=== PATIENT | male | born 1965 | race Caucasian/White ===

== ENCOUNTER 2017-03-09 23:17 | Emergency (ER) | payer SELFPAY | END 2017-03-10 00:50 | disposition home or self-care (01) | LOC: D.ER 23:17 | DX: Z03.89 Encounter for observation for other suspected diseases and conditions ruled out (principal); F17.200 Nicotine dependence, unspecified, uncomplicated ==

== ENCOUNTER 2018-06-12 17:56 | Emergency (ER) | payer SELFPAY ==
[~2018-06-12] VITALS: Ht 162.6 cm; Wt 72.7 kg
[2018-06-12 17:58] VITALS: Ht 162.6 cm; Wt 72.7 kg
[2018-06-12 19:08] LABS: BASOPHILS 0.3 % (0-2); EOSINOPHILS 3.7 % (0-7); HEMATOCRIT 36.8 % (42.0-54.0); HEMOGLOBIN 12.3 g/dL (13.5-17.5); IMMATURE GRANULOCYTES 0.5 % (0-5); LYMPHOCYTES 9.1 % (15-50); MCH 30.7 pg (26.0-34.0); MCHC 33.4 g/dL (31.0-37.0); MCV 91.8 fL (80.0-100.0); MEAN PLATELET VOLUME 8.8 fL (7.4-10.4); MONOCYTES 6.1 % (2-11); NEUTROPHILS 80.3 % (40-80); PLATELET COUNT 362 10x3/uL (130-400); RBC 4.01 10x6/uL (4.20-6.10); RDW 12.8 % (11.5-14.5); WBC 10.5 10x3/uL (4.8-10.8)
[2018-06-12 20:24] LABS: ALBUMIN 2.5 g/dL (3.4-5.0); ALKALINE PHOSPHATASE 93 U/L (46-116); ALT (SGPT) 20 U/L (10-68); CALC OSMOLALITY 274 mosm/kg (275-300); CALCIUM 8.8 mg/dL (8.5-10.1); CARBON DIOXIDE 27.1 mmol/L (21.0-32.0); CHLORIDE - SERUM 103 mmol/L (98-107); CKMB 0.5 U/L (0.0-3.6); CREATINE KINASE 10 UL (21-232); GLUCOSE 92 mg/dL (74-106); POTASSIUM - SERUM 3.9 mmol/L (3.5-5.1); PROTEIN - SERUM 7.1 g/dL (6.4-8.2); SODIUM 138 mmol/L (136-145); UREA NITROGEN 10 mg/dL (7-18)
[2018-06-12 20:28] LABS: CREATININE - SERUM 0.7 mg/dL (0.6-1.3); eGFR NON AFRICAN AMERICAN > 90 mL/min (90-120)
[2018-06-12 20:29] LABS: TROPONIN-I < 0.017 ng/mL (0.000-0.060)
[2018-06-13 00:59] LABS: CKMB 0.6 U/L (0.0-3.6); CREATINE KINASE 10 UL (21-232); PRO BNP 797 pg/mL (0-125)
[2018-06-13 01:02] LABS: TROPONIN-I < 0.017 ng/mL (0.000-0.060)
[2018-06-13 01:33] VITALS: BP 131/87
== END 2018-06-13 01:34 | disposition home or self-care (01) ==
LOC: D.ER 17:56
PROVIDERS: Emergency Medicine; Family Medicine
DX: R60.9 Edema, unspecified (principal); R07.9 Chest pain, unspecified; F19.10 Other psychoactive substance abuse, uncomplicated; F17.200 Nicotine dependence, unspecified, uncomplicated

== ENCOUNTER 2018-08-02 21:45 | Inpatient (IN) | payer MEDICAID ==
[~2018-08-02] VITALS: Ht 162.6 cm; Wt 60.5 kg
--- NOTE | ~2018-08-02 | MORECARE ---
CASE MANAGEMENT DISCHARGE SUMMARY PATIENT: NESTOR HUMPHREY UNIT: [id number] ADM DATE: 08/03/18 AGE: 52 : 63 SEX: M ROOM/BED: D.2104 AUTHOR: HIPOLITO TORO PHYSICIAN: REFERRING PHYSICIAN: ASHLI MERCHANT MD DATE OF SERVICE: 08/07/18 Discharge Plan Patient Name: NESTOR HUMPHREY [facility] [facility] 1965 Planned Disposition: Home Anticipated Discharge Date: 08/07/18 Discharge Date: Expected LOS: 4 Initial Reviewer: [email or web address] Initial Review Date: 08/03/2018 Generated: 08/07/18 6:23 pm Comments DCP- Discharge Planning Updated by [email or web address]: Del Hodges on 08/07/18 4:[address] Patient Name: NESTOR HUMPHREY Encounter No: [id number] : 1965 Primary Insurance: MEDICAID [place] PENDING Anticipated DC Date: 08-07-2018 Planned Disposition: Home DCP follow-up note: HAYES SPOKE TO DR. MERCHANT WHO INFORMED CM THAT PT WILL NEED LASIX, COREG AND ALDACTONE FOR DISCHARGE. DR. MERCHANT WILL DISCHARGE PT TODAY PT IS STABLE, IF MEDICATIONS CAN BE OBTAINED. HAYES MET WITH PT WHO DENIED HAVING FUNDS OR ASSISTANCE TO HELP, HE STILL BELIEVES THAT [facility] WILL ASSIST WITH MEDICATIONS. CM CALLED [facility], SPOKE TO MADELAINE WHO PROVIDED PRICING OF THIRTY DAY SUPPLY OF: LASIX 40MG BID $$17.40 / COREG 3.125MG BID $16.80 / ALDCTONE 25MG 1X DAILY $18.30. CM RECEIVED ADMINISTRATIVE APPROVAL FOR CASE MANAGEMENT TO PURCHASE PT'S MEDICATIONS LISTED ABOVE BY GEOSCIENCE LABORATORY TECHNICIAN ARIA NARANJO. CM NOTIFIED BEDSIDE NURSE AND ASKED FOR NURSE TO CALL [facility] FOR MEDICATION CALL IN ORDER PER DR. MERCHANT. HAYES SPOKE TO YANA OF [facility] [employer] WHO INFORMED CM THAT SHE EXPECTS MEDICAID DETERMINATION IN NEXT TWO DAYS. CM SPOKE TO PT IN ROOM, PROVIDED DEPARTMENT OF HUMAN SERVICES CONTACT INFORMATION, DIRECTED PT TO FOLLOW UP WITH MEDICAID; IF MEDICAID IS ACTIVE, DIRECTED PT TO CONTACT [facility] AND REQUEST PRIMARY CARE, INFORMATION PROVIDED TO PT. IF DECLINED MEDICAID, PT DIRECTED TO REQUEST HARD COPY OF DENIAL LETTER FROM [facility] FOR MEDICAID AND DIRECTED PT TO FILL OUT [facility] APPLICATION AND TURN IN TO [facility]. CM PROVIDED APPLICATION PACKET AND CONTACT INFORMATION TO [facility]. CM PROVIDED TWO BUS PASSES FOR PT'S USE. CM INSTRUCTED PT TO ANIMAL CARE TAKER HIS PRESCRIPTIONS AT [facility], IF AFTER 5:30 TONIGHT, CM ADVISED PT TO PICK THEM UP AT 0900 IN THE MORNING. PT PLANS TO STAY IN [facility] IF DISCHARGED TO LATE TO GET HIS MEDICATIONS AND ANIMAL CARE TAKER MEDICATIONS IN THE MORNING PRIOR TO GOING TO THE [facility]. CM NOTIFIED BEDSIDE NURSE. DEL HODGES, CASE MANAGEMENT DCP- Discharge Planning Updated by [email or web address]: Clementina Houser on 08/03/18 1:[address] CM met with patient to assess/complete initial dc planning assessment. CM educated the patient on the CM role and he gave consent to complete assessment. Patient reports he lives in a building with no utilities. he reports he has no family in the [facility]. He reports he is independent in his care, showers when he is living at [facility]. He is currently wearing 02, may require WALKING O2 SAT upon discharge. He plans to return to the building (no public facilities) or [facility], at discharge. Patient will require MEDICATION ASSIST upon discharge.. Emergency Contact: Varsha Humphrey (mother) [phone] and patient gives consent for contact if needed. Pharmacy: [facility]. PCP: None. CM will continue to follow and will assist as needed with dc plans/needs. DCPIA - Discharge Planning Initial Assessment Updated by [email or web address]: Clementina Corrina on 08/03/18 2:57 pm * Is the patient Alert and Oriented? Yes * How many steps to enter\exit or inside your home? * PCP None * Pharmacy [facility] * Preadmission Environment Homeless * Other Environment Homeless * Facility Name [facility] A building without public utilities * ADLs Partial Dependent * Equipment None * List name and contact numbers for known caregivers / representatives who currently or will assist patient after discharge: Varsha Humphrey (mother) [phone] * Verbal permission to speak to the caregivers and representatives has been obtained from the patient. Yes * Community resources currently utilized None * Please name any agencies selected above. Plans to return to [facility] * Can the patient safely return to the preadmission environment? Yes * Has this patient been hospitalized within the prior 30 days at any hospital? No Last DP export: 08/07/18 4:12 p Patient Name: NESTOR HUMPHREY Page 13708 at 1723 All edits/amendments must be made on the electronic document DICTATION DATE: 08/07/181721 COVERING AND LINING SUPERVISOR: DIONTE 08/07/181721 RPT#: [id number] DC DATE: STATUS: ADM IN [facility] [address] [place] [address] END OF REPORT
--- NOTE | ~2018-08-02 | MORECARE ---
CASE MANAGEMENT DISCHARGE SUMMARY PATIENT: NESTOR HUMPHREY UNIT: [id number] ADM DATE: 08/03/18 AGE: 52 : 63 SEX: M ROOM/BED: D.2104 AUTHOR: CORTEZDOC PHYSICIAN: REFERRING PHYSICIAN: ASHLI MERCHANT MD DATE OF SERVICE: 08/03/18 Discharge Plan Patient Name: NESTOR HUMPHREY Facility: [facility]:[place] : 1965 Planned Disposition: Anticipated Discharge Date: Discharge Date: Expected LOS: Initial Reviewer: [email or web address] Initial Review Date: 08/03/2018 Generated: 08/03/18 4:10 pm Comments DCP- Discharge Planning Updated by [id number]: Clementina Houser on 08/03/18 1:[address] CM met with patient to assess/complete initial dc planning assessment. CM educated the patient on the CM role and he gave consent to complete assessment. Patient reports he lives in a building with no utilities. he reports he has no family in the [facility]. He reports he is independent in his care, showers when he is living at [facility]. He is currently wearing 02, may require WALKING O2 SAT upon discharge. He plans to return to the building (no public facilities) or [facility], at discharge. Patient will require MEDICATION ASSIST upon discharge.. Emergency Contact: Varsha Humphrey (mother) [phone] and patient gives consent for contact if needed. Pharmacy: [facility] /[place]. PCP: None. CM will continue to follow and will assist as needed with dc plans/needs. DCPIA - Discharge Planning Initial Assessment Updated by [email or web address]: Clementina Houser on 08/03/18 2:57 pm * Is the patient Alert and Oriented? Yes * How many steps to enter\exit or inside your home? * PCP None * Pharmacy [facility] * Preadmission Environment Homeless * Other Environment Homeless * Facility Name [facility] without public utilities * ADLs Partial Dependent * Equipment None * List name and contact numbers for known caregivers / representatives who currently or will assist patient after discharge: Varsha Humphrey (mother) [phone] * Verbal permission to speak to the caregivers and representatives has been obtained from the patient. Yes * Community resources currently utilized None * Please name any agencies selected above. Plans to return to [facility] * Can the patient safely return to the preadmission environment? Yes * Has this patient been hospitalized within the prior 30 days at any hospital? No Last DP export: 08/03/18 1:28 Patient Name: NESTOR HUMPHREY Page 13667 at 1510 All edits/amendments must be made on the electronic document DICTATION DATE: 08/03/181508 RACE STEWARD: DIONTE 08/03/18 150 RPT#: [id number] DC DATE: STATUS: ADM IN [facility] [address] [place] [address] END OF REPORT
--- NOTE | ~2018-08-02 | CN ---
PATIENT NAME:NESTOR TRIPLETT MEDICAL RECORD: [id number] : 63 LOCATION:[place].T02- ADMIT DATE: 08/03/18 ACCOUNT: [id number] CONSULTING PHYSICIAN: GENA PHILLIPS MD REFERRING PHYSICIAN: ASHLI MERCHANT MD DATE OF CONSULTATION: 08/03/2018 DIAGNOSES: 1. Congestive heart failure, chronic systolic dysfunction. 2. Dilated cardiomyopathy, nonischemic. 3. Chronic obstructive pulmonary disease. 4. Smoking history. 5. Shortness of breath, dyspnea on exertion. 6. Peripheral edema. 7. Hypokalemia. 8. Chronic obstructive pulmonary disease. 9. Hypertension. 10. Hyperlipidemia. HISTORY OF PRESENT ILLNESS: This is a gentleman known to [facility] with a nonischemic cardiomyopathy, cardiac catheterization revealed ejection fraction in the 15% range, but no coronary artery disease. He now presents with shortness of breath, fluid overload and edema. He is tachycardic in the 100-110 range, systolic blood pressure is in the 120-130 range. He is on IV diuretics. PHYSICAL EXAMINATION: GENERAL APPEARANCE: Well-nourished, well-developed, appears stated age. Level of distress, comfortable. PSYCHIATRIC: Mental status, alert, normal affect. Orientation, oriented to time, place and person. EYES: Lids and conjunctiva, noninjected. No discharge, no pallor. ENT: Lips, teeth, gums, normal dentition. Oropharynx, no cyanosis, no pallor. NECK: Carotid arteries, bilateral normal upstroke, no bruits, no thrills. JUGULAR VEINS: No jugular venous pressure or distention. CERVICAL LYMPH NODES: Nontender, nonenlarged. THYROID: Not enlarged. Nontender. No nodules. LUNGS: Respiratory effort, unlabored. CHEST: Normal curvature. No thoracic deformity. No chest wall tenderness. Percussion, resonant. Auscultation, clear. No wheezes, no rales, no rhonchi. CARDIOVASCULAR: Precordial exam, nondisplaced. No heaves or pericardial thrills. Rate and rhythm, regular. Heart sounds, normal S1, normal S2. No S3, no gallop, no rub. Systolic murmur, not heard. Diastolic murmur, not heard. EXTREMITIES: No cyanosis, no edema. Peripheral pulses, full and equal in all extremities, except as noted. No bruits appreciated. ABDOMEN: Soft, nondistended. Normal aorta. No bruit. Nontender. No masses. Liver, nontender, no hepatomegaly. Spleen, nontender, no splenomegaly. MUSCULOSKELETAL: No joint tenderness. No joint swelling. No erythema. NEUROLOGICAL: Normal gait, normal strength, normal tone. SKIN: Warm and dry. OVERALL IMPRESSION: Nonischemic cardiomyopathy with fluid overload. At this time, we would treat only with diuretics. We would not add dobutamine secondary to worsening of the tachycardia. In fact, we will increase the carvedilol to 6.25 mg b.i.d. as he has enough blood pressure for this. No real cardiac workup is necessary as this has already been done. CONSULT REPORT [id number] NESTOR TRIPLETT TRANSINT:[id number] Voice Confirmation ID: [id number] DOCUMENT ID: [id number] GENA PHILLIPS MD CC: [id number] DICTATION DATE: 08/03/18 0953 SENIOR MEDICAL TRANSCRIPTIONIST: 08/03/18 1016 ADM IN [facility] [address] [place] [id number]
--- NOTE | ~2018-08-02 | MORECARE ---
CASE MANAGEMENT DISCHARGE SUMMARY PATIENT: NESTOR HUMPHREY UNIT: [id number] ADM DATE: 08/03/18 AGE: 52 : 63 SEX: M ROOM/BED: D.2104 AUTHOR: HIPOLITO TORO PHYSICIAN: REFERRING PHYSICIAN: ASHLI MERCHANT MD DATE OF SERVICE: 08/08/18 Discharge Plan Patient Name: NESTOR HUMPHREY [facility] [facility] 1965 Planned Disposition: Home Anticipated Discharge Date: 08/07/18 Discharge Date: 08/07/2018 Expected LOS: 4 Initial Reviewer: [email or web address] Initial Review Date: 08/03/2018 Generated: 08/08/18 9:34 am Comments DCP- Discharge Planning Updated by [email or web address]: Del Hodges on 08/07/18 4:[address] Patient Name: NESTOR HUMPHREY Encounter No: [id number] : 1965 Primary Insurance: MEDICAID [place] PENDING Anticipated DC Date: 08-07-2018 Planned Disposition: Home DCP follow-up note: HAYES SPOKE TO DR. MERCHANT WHO INFORMED CM THAT PT WILL NEED LASIX, COREG AND ALDACTONE FOR DISCHARGE. DR. MERCHANT WILL DISCHARGE PT TODAY PT IS STABLE, IF MEDICATIONS CAN BE OBTAINED. HAYES MET WITH PT WHO DENIED HAVING FUNDS OR ASSISTANCE TO HELP, HE STILL BELIEVES THAT [facility] WILL ASSIST WITH MEDICATIONS. CM CALLED [facility], SPOKE TO MADELAINE WHO PROVIDED PRICING OF THIRTY DAY SUPPLY OF: LASIX 40MG BID $$17.40 / COREG 3.125MG BID $16.80 / ALDCTONE 25MG 1X DAILY $18.30. CM RECEIVED ADMINISTRATIVE APPROVAL FOR CASE MANAGEMENT TO PURCHASE PT'S MEDICATIONS LISTED ABOVE BY BROOD STATION MANAGER ARIA NARANJO. CM NOTIFIED BEDSIDE NURSE AND ASKED FOR NURSE TO CALL [facility] FOR MEDICATION CALL IN ORDER PER DR. MERCHANT. HAYES SPOKE TO YANA OF [facility] [employer] WHO INFORMED CM THAT SHE EXPECTS MEDICAID DETERMINATION IN NEXT TWO DAYS. CM SPOKE TO PT IN ROOM, PROVIDED DEPARTMENT OF HUMAN SERVICES CONTACT INFORMATION, DIRECTED PT TO FOLLOW UP WITH MEDICAID; IF MEDICAID IS ACTIVE, DIRECTED PT TO CONTACT [facility] AND REQUEST PRIMARY CARE, INFORMATION PROVIDED TO PT. IF DECLINED MEDICAID, PT DIRECTED TO REQUEST HARD COPY OF DENIAL LETTER FROM [facility] FOR MEDICAID AND DIRECTED PT TO FILL OUT [facility] APPLICATION AND TURN IN TO [facility]. CM PROVIDED APPLICATION PACKET AND CONTACT INFORMATION TO [facility]. CM PROVIDED TWO BUS PASSES FOR PT'S USE. CM INSTRUCTED PT TO QUALITY CONTROL INSPECTOR HIS PRESCRIPTIONS AT [facility], IF AFTER 5:30 TONIGHT, CM ADVISED PT TO PICK THEM UP AT 0900 IN THE MORNING. PT PLANS TO STAY IN [facility] IF DISCHARGED TO LATE TO GET HIS MEDICATIONS AND QUALITY CONTROL INSPECTOR MEDICATIONS IN THE MORNING PRIOR TO GOING TO THE [facility]. CM NOTIFIED BEDSIDE NURSE. DEL HODGES, CASE MANAGEMENT DCP- Discharge Planning Updated by [email or web address]: Clementina Houser on 08/03/18 1:[address] CM met with patient to assess/complete initial dc planning assessment. CM educated the patient on the CM role and he gave consent to complete assessment. Patient reports he lives in a building with no utilities. he reports he has no family in the [facility]. He reports he is independent in his care, showers when he is living at [facility]. He is currently wearing 02, may require WALKING O2 SAT upon discharge. He plans to return to the building (no public facilities) or [facility], at discharge. Patient will require MEDICATION ASSIST upon discharge.. Emergency Contact: Varsha Humphrey (mother) [phone] and patient gives consent for contact if needed. Pharmacy: [facility]. PCP: None. CM will continue to follow and will assist as needed with dc plans/needs. DCPIA - Discharge Planning Initial Assessment Updated by [email or web address]: Clementina Houser on 08/03/18 2:57 pm * Is the patient Alert and Oriented? Yes * How many steps to enter\exit or inside your home? * PCP None * Pharmacy [facility] * Preadmission Environment Homeless * Other Environment Homeless * Facility Name [facility] A building without public utilities * ADLs Partial Dependent * Equipment None * List name and contact numbers for known caregivers / representatives who currently or will assist patient after discharge: Varsha Humphrey (mother) [phone] * Verbal permission to speak to the caregivers and representatives has been obtained from the patient. Yes * Community resources currently utilized None * Please name any agencies selected above. Plans to return to [facility] * Can the patient safely return to the preadmission environment? Yes * Has this patient been hospitalized within the prior 30 days at any hospital? No Last DP export: 08/07/18 5:08 p Patient Name: NESTOR HUMPHREY Page 77840 at 0835 All edits/amendments must be made on the electronic document DICTATION DATE: 08/08/18833 CHEMICAL DEPENDENCY NURSE: DIONTE 08/08/18833 RPT#: [id number] DC DATE:08/07/18 STATUS: DIS IN [facility] [address] [place] [address] END OF REPORT
--- NOTE | ~2018-08-02 | MORECARE ---
CASE MANAGEMENT DISCHARGE SUMMARY PATIENT: NESTOR TRIPLETT UNIT: [id number] ADM DATE: 08/03/18 AGE: 52 : 63 SEX: M ROOM/BED: D.2104 AUTHOR: HIPOLITO TORO PHYSICIAN: REFERRING PHYSICIAN: ASHLI MERCHANT MD DATE OF SERVICE: 08/03/18 Discharge Plan Patient Name: NESTOR TRIPLETT [facility] [facility] 1965 Planned Disposition: Anticipated Discharge Date: Discharge Date: Expected LOS: Initial Reviewer: [email or web address] Initial Review Date: 08/03/2018 Generated: 08/03/18 3:11 pm Patient Name: NESTOR TRIPLETT Page 96055 at 1411 All edits/amendments must be made on the electronic document DICTATION DATE: 08/03/18 1411 VARNISHING UNIT OPERATOR: DIONTE 08/03/18 1411 RPT#: [id number] DC DATE: STATUS: ADM IN [facility] [address] [place] [address] END OF REPORT
--- NOTE | ~2018-08-02 | MORECARE ---
CASE MANAGEMENT DISCHARGE SUMMARY PATIENT: NESTOR HUMPHREY UNIT: [id number] ADM DATE: 08/03/18 AGE: 52 : 63 SEX: M ROOM/BED: D.2104 AUTHOR: CORTEZDOC PHYSICIAN: REFERRING PHYSICIAN: ASHLI MERCHANT MD DATE OF SERVICE: 08/07/18 Discharge Plan Patient Name: NESTOR HUMPHREY Facility: [facility]:[place] : 1965 Planned Disposition: Home Anticipated Discharge Date: 08/07/18 Discharge Date: Expected LOS: 4 Initial Reviewer: [email or web address] Initial Review Date: 08/03/2018 Generated: 08/07/18 6:12 pm Comments DCP- Discharge Planning Updated by [email or web address]: Clementina Huoser on 08/03/18 1:[address] CM met with patient to assess/complete initial dc planning assessment. CM educated the patient on the CM role and he gave consent to complete assessment. Patient reports he lives in a building with no utilities. he reports he has no family in the [facility]. He reports he is independent in his care, showers when he is living at [facility]. He is currently wearing 02, may require WALKING O2 SAT upon discharge. He plans to return to the building (no public facilities) or [facility], at discharge. Patient will require MEDICATION ASSIST upon discharge.. Emergency Contact: Varsha Humphrey (mother) [phone] and patient gives consent for contact if needed. Pharmacy: [facility]. PCP: None. CM will continue to follow and will assist as needed with dc plans/needs. DCPIA - Discharge Planning Initial Assessment Updated by [email or web address]: Clementina Houser on 08/03/18 2:57 pm * Is the patient Alert and Oriented? Yes * How many steps to enter\exit or inside your home? * PCP None * Pharmacy [facility] /[place] * Preadmission Environment Homeless * Other Environment Homeless * Facility Name [facility] without public utilities * ADLs Partial Dependent * Equipment None * List name and contact numbers for known caregivers / representatives who currently or will assist patient after discharge: Varsha Humphrey (mother) [phone] * Verbal permission to speak to the caregivers and representatives has been obtained from the patient. Yes * Community resources currently utilized None * Please name any agencies selected above. Plans to return to [facility] * Can the patient safely return to the preadmission environment? Yes * Has this patient been hospitalized within the prior 30 days at any hospital? No Last DP export: 08/06/18 8:19 a Patient Name: NESTOR HUMPHREY Page 38062 at 1712 All edits/amendments must be made on the electronic document DICTATION DATE: 08/07/181711 MOTOR TRANSPORT INSPECTOR: DIONTE 08/07/181711 RPT#: [id number] DC DATE: STATUS: ADM IN [facility] [address] [place] [address] END OF REPORT
--- NOTE | ~2018-08-02 | MORECARE ---
CASE MANAGEMENT DISCHARGE SUMMARY PATIENT: NESTOR HUMPHREY UNIT: [id number] ADM DATE: 08/03/18 AGE: 52 : 63 SEX: M ROOM/BED: D.2104 AUTHOR: CORTEZDOC PHYSICIAN: REFERRING PHYSICIAN: ASHLI MERCHANT MD DATE OF SERVICE: 08/06/18 Discharge Plan Patient Name: NESTOR HUMPHREY Facility: [facility]:[place] : 1965 Planned Disposition: Anticipated Discharge Date: Discharge Date: Expected LOS: Initial Reviewer: [email or web address] Initial Review Date: 08/03/2018 Generated: 08/06/18 10:19 am Comments DCP- Discharge Planning Updated by [email or web address]: Clementina Houser on 08/03/18 1:[address] CM met with patient to assess/complete initial dc planning assessment. CM educated the patient on the CM role and he gave consent to complete assessment. Patient reports he lives in a building with no utilities. he reports he has no family in the count includes the [facility]. He reports he is independent in his care, showers when he is living at [facility]. He is currently wearing 02, may require WALKING O2 SAT upon discharge. He plans to return to the building (no public facilities) or [facility], at discharge. Patient will require MEDICATION ASSIST upon discharge.. Emergency Contact: Varsha Humphrey (mother) [phone] and patient gives consent for contact if needed. Pharmacy: [facility]. PCP: None. CM will continue to follow and will assist as needed with dc plans/needs. DCPIA - Discharge Planning Initial Assessment Updated by [email or web address]: Clementina Houser on 08/03/18 2:57 pm * Is the patient Alert and Oriented? Yes * How many steps to enter\exit or inside your home? * PCP None * Pharmacy [facility] * Preadmission Environment Homeless * Other Environment Homeless * Facility Name [facility] without public utilities * ADLs Partial Dependent * Equipment None * List name and contact numbers for known caregivers / representatives who currently or will assist patient after discharge: Varsha Humphrey (mother) [phone] * Verbal permission to speak to the caregivers and representatives has been obtained from the patient. Yes * Community resources currently utilized None * Please name any agencies selected above. Plans to return to [facility] * Can the patient safely return to the preadmission environment? Yes * Has this patient been hospitalized within the prior 30 days at any hospital? No Last DP export: 08/03/18 2:10 Patient Name: NESTOR HUMPHREY Page 32054 at 0919 All edits/amendments must be made on the electronic document DICTATION DATE: 08/06/18917 THIOKOL OPERATOR: DIONTE 08/06/18917 RPT#: [id number] DC DATE: STATUS: ADM IN [facility] [address] [place] [address] END OF REPORT
--- NOTE | ~2018-08-02 | MORECARE ---
CASE MANAGEMENT DISCHARGE SUMMARY PATIENT: NESTOR HUMPHREY UNIT: [id number] ADM DATE: 08/03/18 AGE: 52 : 63 SEX: M ROOM/BED: D.2104 AUTHOR: HIPOLITO TORO PHYSICIAN: REFERRING PHYSICIAN: ASHLI MERCHANT MD DATE OF SERVICE: 08/07/18 Discharge Plan Patient Name: NESTOR HUMPHREY [facility] [facility] 1965 Planned Disposition: Home Anticipated Discharge Date: 08/07/18 Discharge Date: Expected LOS: 4 Initial Reviewer: [email or web address] Initial Review Date: 08/03/2018 Generated: 08/07/18 7:08 pm Comments DCP- Discharge Planning Updated by [email or web address]: Del Hodges on 08/07/18 4:[address] Patient Name: NESTOR HUMPHREY Encounter No: [id number] : 1965 Primary Insurance: [place]ICAID [place]END[place] Anticipated DC Date: 08-07-2018 Planned Disposition: Home DCP follow-up note: HAYES SPOKE TO DR. MERCHANT WHO INFORMED CM THAT PT WILL NEED LASIX, COREG AND ALDACTONE FOR DISCHARGE. DR. MERCHANT WILL DISCHARGE PT TODAY PT IS STABLE, IF MEDICATIONS CAN BE OBTAINED. HAYES MET WITH PT WHO DENIED HAVING FUNDS OR ASSISTANCE TO HELP, HE STILL BELIEVES THAT HEALTH SYSTEM WILL ASSIST WITH MEDICATIONS. CM CALLED [facility], SPOKE TO MADELAINE WHO PROVIDED PRICING OF THIRTY DAY SUPPLY OF: LASIX 40MG BID $$17.40 / COREG 3.125MG BID $16.80 / ALDCTONE 25MG 1X DAILY $18.30. CM RECEIVED ADMINISTRATIVE APPROVAL FOR CASE MANAGEMENT TO PURCHASE PT'S MEDICATIONS LISTED ABOVE BY SWITCHBOARD INSTALLER ARIA NARANJO. CM NOTIFIED BEDSIDE NURSE AND ASKED FOR NURSE TO CALL [facility] FOR MEDICATION CALL IN ORDER PER DR. MERCHANT. HAYES SPOKE TO YANA OF [facility] [employer] WHO INFORMED CM THAT SHE EXPECTS MEDICAID DETERMINATION IN NEXT TWO DAYS. CM SPOKE TO PT IN ROOM, PROVIDED DEPARTMENT OF HUMAN SERVICES CONTACT INFORMATION, DIRECTED PT TO FOLLOW UP WITH MEDICAID; IF MEDICAID IS ACTIVE, DIRECTED PT TO CONTACT [facility] AND REQUEST PRIMARY CARE, INFORMATION PROVIDED TO PT. IF DECLINED MEDICAID, PT DIRECTED TO REQUEST HARD COPY OF DENIAL LETTER FROM [facility] FOR MEDICAID AND DIRECTED PT TO FILL OUT [facility] APPLICATION AND TURN IN TO [facility]. CM PROVIDED APPLICATION PACKET AND CONTACT INFORMATION TO [facility]. CM PROVIDED TWO BUS PASSES FOR PT'S USE. CM INSTRUCTED PT TO RASCHEL KNITTING MACHINE OPERATOR HIS PRESCRIPTIONS AT [facility], IF AFTER 5:30 TONIGHT, CM ADVISED PT TO PICK THEM UP AT 0900 IN THE MORNING. PT PLANS TO STAY IN [facility] IF DISCHARGED TO LATE TO GET HIS MEDICATIONS AND RASCHEL KNITTING MACHINE OPERATOR MEDICATIONS IN THE MORNING PRIOR TO GOING TO THE [facility]. CM NOTIFIED BEDSIDE NURSE. DEL HODGES, CASE MANAGEMENT DCP- Discharge Planning Updated by [id number]: Clementina Houser on 08/03/18 1:[address] CM met with patient to assess/complete initial dc planning assessment. CM educated the patient on the CM role and he gave consent to complete assessment. Patient reports he lives in a building with no utilities. he reports he has no family in the [facility]. He reports he is independent in his care, showers when he is living at [facility]. He is currently wearing 02, may require WALKING O2 SAT upon discharge. He plans to return to the building (no public facilities) or [facility], at discharge. Patient will require MEDICATION ASSIST upon discharge.. Emergency Contact: Varsha Humphrey (mother) [phone] and patient gives consent for contact if needed. Pharmacy: [facility]. PCP: None. CM will continue to follow and will assist as needed with dc plans/needs. DCPIA - Discharge Planning Initial Assessment Updated by [email or web address]: Clementina Corrina on 08/03/18 2:57 pm * Is the patient Alert and Oriented? Yes * How many steps to enter\exit or inside your home? * PCP None * Pharmacy [facility] * Preadmission Environment Homeless * Other Environment Homeless * Facility Name [facility] A building without public utilities * ADLs Partial Dependent * Equipment None * List name and contact numbers for known caregivers / representatives who currently or will assist patient after discharge: Varsha Humphrey (mother) [phone] * Verbal permission to speak to the caregivers and representatives has been obtained from the patient. Yes * Community resources currently utilized None * Please name any agencies selected above. Plans to return to [facility] * Can the patient safely return to the preadmission environment? Yes * Has this patient been hospitalized within the prior 30 days at any hospital? No Last DP export: 08/07/18 4:23 p Patient Name: NESTOR HUMPHREY Page [phone] at 1808 All edits/amendments must be made on the electronic document DICTATION DATE: 08/07/181807 RATE SUPERVISOR: DIONTE 08/07/181807 RPT#: [id number] DC DATE: STATUS: ADM IN [facility] [address] [place] [address] END OF REPORT
--- NOTE | ~2018-08-02 | MORECARE ---
CASE MANAGEMENT DISCHARGE SUMMARY PATIENT: NESTOR HUMPHREY UNIT: [id number] ADM DATE: 08/03/18 AGE: 52 : 63 SEX: M ROOM/BED: D.2104 AUTHOR: HIPOLITO TORO PHYSICIAN: REFERRING PHYSICIAN: ASHLI MERCHANT MD DATE OF SERVICE: 08/03/18 Discharge Plan Patient Name: NESTOR HUMPHREY [facility] [facility] 1965 Planned Disposition: Anticipated Discharge Date: Discharge Date: Expected LOS: Initial Reviewer: [email or web address] Initial Review Date: 08/03/2018 Generated: 08/03/18 3:28 pm Comments DCP- Discharge Planning Updated by [email or web address]: Clementina Houser on 08/03/18 1:[address] CM met with patient to assess/complete initial dc planning assessment. CM educated the patient on the CM role and he gave consent to complete assessment. Patient reports he lives in a building with no utilities. he reports he has no family in the state. He reports he is independent in his care, showers when he is living at [facility]. He is currently wearing 02, may require WALKING O2 SAT upon discharge. He plans to return to the building (no public facilities) or [facility], at discharge. Patient will require MEDICATION ASSIST upon discharge.. Emergency Contact: Varsha Humphrey (mother) [phone] and patient gives consent for contact if needed. Pharmacy: [facility]. PCP: None. CM will continue to follow and will assist as needed with dc plans/needs. Last DP export: 08/03/18 1:11 Patient Name: NESTOR HUMPHREY Page [id number] at 1428 All edits/amendments must be made on the electronic document DICTATION DATE: 08/03/181427 MESSAGE BROKER DEVELOPER: DIONTE 08/03/181427 RPT#: [id number] DC DATE: STATUS: ADM IN [facility] [address] [place] [address] END OF REPORT
[2018-08-02 22:26] LABS: BASOPHILS 0.5 % (0-2); EOSINOPHILS 2.9 % (0-7); HEMATOCRIT 39.6 % (42.0-54.0); HEMOGLOBIN 13.2 g/dL (13.5-17.5); IMMATURE GRANULOCYTES 0.3 % (0-5); LYMPHOCYTES 15.2 % (15-50); MCH 29.4 pg (26.0-34.0); MCHC 33.3 g/dL (31.0-37.0); MCV 88.2 fL (80.0-100.0); MEAN PLATELET VOLUME 9.4 fL (7.4-10.4); NEUTROPHILS 77.1 % (40-80); PLATELET COUNT 354 10x3/uL (130-400); RBC 4.49 10x6/uL (4.20-6.10); RDW 14.2 % (11.5-14.5)
[2018-08-02 22:32] LABS: APTT 27.5 SECONDS (22.8-39.4); INR 1.03 (0.85-1.17)
[2018-08-02 22:40] LABS: ALBUMIN 2.7 g/dL (3.4-5.0); ALKALINE PHOSPHATASE 77 U/L (46-116); ALT (SGPT) 18 U/L (10-68); BILIRUBIN - TOTAL 0.33 mg/dL (0.2-1.3); CALC OSMOLALITY 280 mosm/kg (275-300); CALCIUM 8.4 mg/dL (8.5-10.1); CARBON DIOXIDE 30.9 mmol/L (21.0-32.0); CHLORIDE - SERUM 99 mmol/L (98-107); CREATININE - SERUM 1.3 mg/dL (0.6-1.3); GLUCOSE 136 mg/dL (74-106); POTASSIUM - SERUM 3.4 mmol/L (3.5-5.1); PROTEIN - SERUM 7.4 g/dL (6.4-8.2); SODIUM 139 mmol/L (136-145); UREA NITROGEN 16 mg/dL (7-18); eGFR NON AFRICAN AMERICAN 61 mL/min (90-120)
[2018-08-02 22:46] LABS: CKMB 1.3 U/L (0.0-3.6); CREATINE KINASE 22 UL (21-232); PRO BNP 36647 pg/mL (0-125); TROPONIN-I 0.054 ng/mL (0.000-0.060)
[2018-08-02 22:55] LABS: APPEARANCE CLEAR (CLEAR); BILIRUBIN NEGATIVE (NEGATIVE); COLOR YELLOW (YELLOW); GLUCOSE NEGATIVE (NEGATIVE); KETONE NEGATIVE (NEGATIVE); NITRITE NEGATIVE (NEGATIVE); PROTEIN NEGATIVE (NEGATIVE); SPECIFIC GRAVITY 1.015 (1.005-1.020); UROBILINOGEN NORMAL (NORMAL)
[2018-08-02 23:42] VITALS: BP 142/100
[2018-08-03] VITALS (7 sets, daily range): BP systolic 111–137; BP diastolic 75–95; BMI 22.3
[2018-08-04 04:00] VITALS: BP 118/76
[2018-08-04 05:03] LABS: BASOPHILS 0.1 % (0-2); EOSINOPHILS 0.1 % (0-7); HEMOGLOBIN 12.1 g/dL (13.5-17.5); IMMATURE GRANULOCYTES 0.4 % (0-5); LYMPHOCYTES 3.9 % (15-50); MCH 29.3 pg (26.0-34.0); MCHC 33.6 g/dL (31.0-37.0); MCV 87.2 fL (80.0-100.0); MEAN PLATELET VOLUME 10.7 fL (7.4-10.4); MONOCYTES 1.9 % (2-11); NEUTROPHILS 93.6 % (40-80); RBC 4.13 10x6/uL (4.20-6.10); RDW 14.3 % (11.5-14.5)
[2018-08-04 05:08] LABS: PLATELET COUNT 282 10x3/uL (130-400); WBC 13.9 10x3/uL (4.8-10.8)
[2018-08-04 05:28] LABS: ALBUMIN 2.3 g/dL (3.4-5.0); BILIRUBIN - TOTAL 0.27 mg/dL (0.2-1.3); CALCIUM 8.9 mg/dL (8.5-10.1); CARBON DIOXIDE 31.7 mmol/L (21.0-32.0); CREATININE - SERUM 1.3 mg/dL (0.6-1.3)
[2018-08-04 05:30] LABS: ANION GAP 11.9 mmol/L (8-16); POTASSIUM - SERUM 4.6 mmol/L (3.5-5.1)
[2018-08-04 09:04] VITALS: Ht 162.6 cm; Wt 60.5 kg
[2018-08-04 09:56] VITALS: BP 116/79
[2018-08-04 16:17] VITALS: BP 120/78
[2018-08-04 20:30] VITALS: BP 113/70
[2018-08-05 04:30] VITALS: BP 112/71
[2018-08-05 07:09] LABS: ANION GAP 8.6 mmol/L (8-16); CALCIUM 8.7 mg/dL (8.5-10.1); CARBON DIOXIDE 36.5 mmol/L (21.0-32.0); CREATININE - SERUM 1.4 mg/dL (0.6-1.3); POTASSIUM - SERUM 3.1 mmol/L (3.5-5.1)
[2018-08-05 09:23] VITALS: BP 121/93
[2018-08-05 11:53] VITALS: BP 125/87
[2018-08-05 14:52] VITALS: BP 106/61
[2018-08-05 20:30] VITALS: BP 159/60
[2018-08-06 05:53] LABS: BASOPHILS 0.1 % (0-2); HEMATOCRIT 41.1 % (42.0-54.0); HEMOGLOBIN 13.5 g/dL (13.5-17.5); IMMATURE GRANULOCYTES 0.4 % (0-5); LYMPHOCYTES 22.7 % (15-50); MCH 29.2 pg (26.0-34.0); MCHC 32.8 g/dL (31.0-37.0); MEAN PLATELET VOLUME 9.6 fL (7.4-10.4); MONOCYTES 7.8 % (2-11); RBC 4.62 10x6/uL (4.20-6.10); RDW 14.7 % (11.5-14.5)
[2018-08-06 06:00] LABS: PLATELET COUNT 364 10x3/uL (130-400); WBC 10.1 10x3/uL (4.8-10.8)
[2018-08-06 06:17] LABS: ANION GAP 8.2 mmol/L (8-16); CALCIUM 8.7 mg/dL (8.5-10.1); CARBON DIOXIDE 35.7 mmol/L (21.0-32.0); CREATININE - SERUM 1.3 mg/dL (0.6-1.3); POTASSIUM - SERUM 3.9 mmol/L (3.5-5.1)
[2018-08-06 07:57] VITALS: BP 123/83
[2018-08-06 10:40] VITALS: BP 136/72
[2018-08-06 15:43] VITALS: BP 109/82
[2018-08-06 22:11] VITALS: BP 99/64
[2018-08-07 01:13] VITALS: BP 110/71
[2018-08-07 05:18] VITALS: BP 89/65
[2018-08-07 07:28] LABS: CALCIUM 9.1 mg/dL (8.5-10.1); CARBON DIOXIDE 34.4 mmol/L (21.0-32.0); CREATININE - SERUM 1.4 mg/dL (0.6-1.3)
[2018-08-07 07:49] LABS: ANION GAP 10.4 mmol/L (8-16); POTASSIUM - SERUM 3.8 mmol/L (3.5-5.1)
[2018-08-07 08:39] VITALS: BP 106/71
[2018-08-07 11:16] VITALS: BP 103/66
[2018-08-07 15:48] VITALS: BP 109/69
[2018-08-07] MEDS ORDERED: LISINOPRIL2.5 MG PO (16:59)
[2018-08-07] MEDS ORDERED: COREG 3.1253.125 MG PO (16:59)
[2018-08-07] MEDS ORDERED: ALDACTONE25 MG PO (16:59)
[2018-08-07] MEDS ORDERED: LASIX40 MG PO (17:00)
[2018-08-07] MEDS ORDERED: ASPIRIN EC81 M1 PO (17:01)
== END 2018-08-07 20:00 | disposition home or self-care (01) | DRG 291 ==
LOC: D.ER 21:45 → D.EDHOLD 08-03 02:41 → D.M2 08-03 02:41
PROVIDERS: Family Medicine
DX: I11.0 Hypertensive heart disease with heart failure (principal); J96.90 Respiratory failure, unspecified, unspecified whether with hypoxia or hypercapnia; I50.23 Acute on chronic systolic (congestive) heart failure; I42.0 Dilated cardiomyopathy; J44.9 Chronic obstructive pulmonary disease, unspecified; E87.6 Hypokalemia; E78.5 Hyperlipidemia, unspecified; I71.2 Thoracic aortic aneurysm, without rupture; J40 Bronchitis, not specified as acute or chronic; Z91.19 Patient's noncompliance with other medical treatment and regimen; M25.571 Pain in right ankle and joints of right foot

== ENCOUNTER 2018-08-10 20:45 | Emergency (ER) | payer MEDICAID ==
[2018-08-10 21:39] LABS: BASOPHILS 0.2 % (0-2); HEMATOCRIT 40.1 % (42.0-54.0); HEMOGLOBIN 13.4 g/dL (13.5-17.5); IMMATURE GRANULOCYTES 0.9 % (0-5); LYMPHOCYTES 18.3 % (15-50); MCH 29.7 pg (26.0-34.0); MCHC 33.4 g/dL (31.0-37.0); MCV 88.9 fL (80.0-100.0); MEAN PLATELET VOLUME 9.4 fL (7.4-10.4); MONOCYTES 10.2 % (2-11); NEUTROPHILS 67.4 % (40-80); PLATELET COUNT 297 10x3/uL (130-400); RBC 4.51 10x6/uL (4.20-6.10); RDW 14.3 % (11.5-14.5); WBC 12.2 10x3/uL (4.8-10.8)
[2018-08-10 21:58] LABS: ALBUMIN 3.1 g/dL (3.4-5.0); ALKALINE PHOSPHATASE 82 U/L (46-116); ALT (SGPT) 20 U/L (10-68); BILIRUBIN - TOTAL 0.26 mg/dL (0.2-1.3); CALC OSMOLALITY 281 mosm/kg (275-300); CALCIUM 9.4 mg/dL (8.5-10.1); CARBON DIOXIDE 29.6 mmol/L (21.0-32.0); CHLORIDE - SERUM 100 mmol/L (98-107); CREATININE - SERUM 1.2 mg/dL (0.6-1.3); GLUCOSE 88 mg/dL (74-106); POTASSIUM - SERUM 4.3 mmol/L (3.5-5.1); PROTEIN - SERUM 7.6 g/dL (6.4-8.2); SODIUM 139 mmol/L (136-145); UREA NITROGEN 27 mg/dL (7-18); eGFR NON AFRICAN AMERICAN 67 mL/min (90-120)
[2018-08-10 22:01] LABS: CREATINE KINASE 16 UL (21-232); TROPONIN-I < 0.017 ng/mL (0.000-0.060)
== END 2018-08-11 00:56 | disposition home or self-care (01) ==
LOC: D.ER 20:45
PROVIDERS: Emergency Medicine
DX: R07.9 Chest pain, unspecified (principal); I42.9 Cardiomyopathy, unspecified; I50.9 Heart failure, unspecified; R06.02 Shortness of breath; M54.6 Pain in thoracic spine; F17.200 Nicotine dependence, unspecified, uncomplicated

== ENCOUNTER 2018-08-17 12:02 | Emergency (ER) | payer MEDICAID ==
[~2018-08-17] VITALS: Ht 162.6 cm; Wt 64.5 kg
[~2018-08-17 12:02] MED LIST: ALDACTONE25 MG PO; ASPIRIN EC81 M1 PO; COREG 3.1253.125 MG PO; LASIX40 MG PO; LISINOPRIL2.5 MG PO
[2018-08-17 12:45] VITALS: Ht 162.6 cm; Wt 64.5 kg
[2018-08-17] MEDS ORDERED: NEURONTIN 300300 MG PO (13:49)
[2018-08-17 14:40] VITALS: BP 136/84
== END 2018-08-17 14:41 | disposition home or self-care (01) ==
LOC: D.ER 12:02
DX: R20.2 Paresthesia of skin (principal); M79.672 Pain in left foot; M79.671 Pain in right foot; F17.200 Nicotine dependence, unspecified, uncomplicated

== ENCOUNTER 2018-08-31 15:04 | Emergency (ER) | payer MEDICAID ==
[~2018-08-31] VITALS: Ht 162.6 cm; Wt 68.2 kg
[~2018-08-31 15:04] MED LIST changes: +NEURONTIN 300300 MG PO
[2018-08-31 15:06] VITALS: Ht 162.6 cm; Wt 68.2 kg
[2018-08-31] MEDS ORDERED: NEURONTIN 300300 MG PO (16:27)
[2018-08-31 17:02] VITALS: BP 154/87
== END 2018-08-31 17:02 | disposition home or self-care (01) ==
LOC: D.ER 15:04
DX: G62.9 Polyneuropathy, unspecified (principal); M79.672 Pain in left foot; M79.671 Pain in right foot; F17.200 Nicotine dependence, unspecified, uncomplicated

== ENCOUNTER 2018-09-10 00:13 | Emergency (ER) | payer MEDICAID ==
[~2018-09-10] VITALS: Ht 162.6 cm; Wt 63.5 kg
[2018-09-10 00:14] VITALS: Ht 162.6 cm; Wt 63.5 kg
[2018-09-10 00:36] LABS: BASOPHILS 0.5 % (0-2); EOSINOPHILS 1.6 % (0-7); HEMATOCRIT 41.4 % (42.0-54.0); HEMOGLOBIN 14.1 g/dL (13.5-17.5); IMMATURE GRANULOCYTES 0.3 % (0-5); LYMPHOCYTES 10.9 % (15-50); MCH 29.5 pg (26.0-34.0); MCHC 34.1 g/dL (31.0-37.0); MCV 86.6 fL (80.0-100.0); MEAN PLATELET VOLUME 9.1 fL (7.4-10.4); MONOCYTES 7.1 % (2-11); NEUTROPHILS 79.6 % (40-80); PLATELET COUNT 292 10x3/uL (130-400); RBC 4.78 10x6/uL (4.20-6.10); RDW 14.5 % (11.5-14.5); WBC 12.3 10x3/uL (4.8-10.8)
[2018-09-10 00:49] LABS: ALBUMIN 3.4 g/dL (3.4-5.0); ANION GAP 12.2 mmol/L (8-16); BILIRUBIN - TOTAL 0.38 mg/dL (0.2-1.3); CALCIUM 8.9 mg/dL (8.5-10.1); CARBON DIOXIDE 30.4 mmol/L (21.0-32.0); CREATININE - SERUM 1.5 mg/dL (0.6-1.3); POTASSIUM - SERUM 3.6 mmol/L (3.5-5.1); PROTEIN - SERUM 7.8 g/dL (6.4-8.2)
[2018-09-10 02:00] LABS: APPEARANCE CLEAR (CLEAR); BILIRUBIN NEGATIVE (NEGATIVE); COLOR YELLOW (YELLOW); GLUCOSE NEGATIVE (NEGATIVE); KETONE NEGATIVE (NEGATIVE); NITRITE NEGATIVE (NEGATIVE); PROTEIN NEGATIVE (NEGATIVE); UROBILINOGEN NORMAL (NORMAL)
[2018-09-10] MEDS ORDERED: ULTRAM50 MG PO (06:24)
[2018-09-10] MEDS ORDERED: ZOFRAN ODT4 MG/UDTAB PO (06:24)
[2018-09-10 06:52] VITALS: BP 150/95
== END 2018-09-10 06:53 | disposition home or self-care (01) ==
LOC: D.ER 00:13
PROVIDERS: Family Medicine
DX: R10.9 Unspecified abdominal pain (principal); A08.4 Viral intestinal infection, unspecified; R11.0 Nausea; F17.200 Nicotine dependence, unspecified, uncomplicated

== ENCOUNTER 2019-08-31 19:58 | Emergency (ER) | payer MEDICAID ==
[~2019-08-31] VITALS: Ht 162.6 cm; Wt 72.7 kg
[~2019-08-31 19:58] MED LIST changes: +ULTRAM50 MG PO; +ZOFRAN ODT4 MG/UDTAB PO
[2019-08-31 20:06] VITALS: Ht 162.6 cm; Wt 72.7 kg
[2019-08-31] MEDS ORDERED: HYDROCODON-ACE1 EAC2 PO (20:09)
[2019-08-31 20:22] LABS: BASOPHILS 0.5 % (0-2); EOSINOPHILS 1.6 % (0-7); HEMATOCRIT 42.3 % (42.0-54.0); HEMOGLOBIN 15.1 g/dL (13.5-17.5); IMMATURE GRANULOCYTES 0.1 % (0-5); LYMPHOCYTES 17.6 % (15-50); MCH 31.9 pg (26.0-34.0); MCHC 35.7 g/dL (31.0-37.0); MCV 89.4 fL (80.0-100.0); MEAN PLATELET VOLUME 9.4 fL (7.4-10.4); MONOCYTES 8.3 % (2-11); NEUTROPHILS 71.9 % (40-80); PLATELET COUNT 244 10x3/uL (130-400); RBC 4.73 10x6/uL (4.20-6.10); RDW 12.3 % (11.5-14.5); WBC 8.6 10x3/uL (4.8-10.8)
[2019-08-31 20:30] LABS: CALC OSMOLALITY 278 mosm/kg (275-300); CARBON DIOXIDE 26.5 mmol/L (21.0-32.0); CHLORIDE - SERUM 104 mmol/L (98-107); CREATININE - SERUM 1.2 mg/dL (0.6-1.3); GLUCOSE 99 mg/dL (74-106); POTASSIUM - SERUM 3.5 mmol/L (3.5-5.1); SODIUM 140 mmol/L (136-145); UREA NITROGEN 12 mg/dL (7-18); eGFR NON AFRICAN AMERICAN 67 mL/min (90-120)
[2019-08-31 20:31] LABS: APTT 34.1 SECONDS (22.8-39.4); INR 1.12 (0.85-1.17); PROTIME 13.9 SECONDS (11.6-15.0)
[2019-08-31 20:46] LABS: ALBUMIN 3.5 g/dL (3.4-5.0); ALKALINE PHOSPHATASE 76 U/L (46-116); ALT (SGPT) 45 U/L (10-68); BILIRUBIN - TOTAL 0.44 mg/dL (0.2-1.3); CKMB 1.3 U/L (0.0-3.6); CREATINE KINASE 60 UL (21-232); MAGNESIUM - SERUM 1.8 mg/dL (1.8-2.4); PROTEIN - SERUM 7.2 g/dL (6.4-8.2)
[2019-08-31 20:48] LABS: TROPONIN-I < 0.017 ng/mL (0.000-0.060)
[2019-08-31 21:05] VITALS: BP 168/112
== END 2019-08-31 21:05 | disposition left against medical advice (07) ==
LOC: D.ER 19:58
PROVIDERS: Family Medicine
DX: R07.9 Chest pain, unspecified (principal); Z53.29 Procedure and treatment not carried out because of patient's decision for other reasons; I11.0 Hypertensive heart disease with heart failure; I50.9 Heart failure, unspecified; Z72.0 Tobacco use

== ENCOUNTER 2021-01-04 07:56 | Emergency (ER) | payer MEDICAID ==
[~2021-01-04] VITALS: Ht 162.6 cm; Wt 72.7 kg
[~2021-01-04 07:56] MED LIST changes: +ACETAMINOPHEN500 M1 PO; +CYCLOBENZAPRINE10 MG PO; +HYDROCODON-ACE1 EAC2 PO; +IBUPROFEN800 MG PO; +LISINOPRIL-HCT1 EAC4 PO; +NICODERM CQ1 EAC3 TRANSDERM
[2021-01-04 08:19] VITALS: BP 162/97; Ht 162.6 cm; Wt 72.7 kg
[2021-01-04] MEDS ORDERED: CYCLOBENZAPRINE10 MG PO (08:38)
[2021-01-04] MEDS ORDERED: IBUPROFEN800 MG PO (08:38)
== END 2021-01-04 08:56 | disposition home or self-care (01) ==
LOC: D.ER 07:56
DX: M25.511 Pain in right shoulder (principal); M62.838 Other muscle spasm; I10 Essential (primary) hypertension; I50.9 Heart failure, unspecified

== ENCOUNTER 2021-01-23 00:17 | Emergency (ER) | payer MEDICAID ==
[~2021-01-23] VITALS: Ht 162.6 cm; Wt 72.7 kg
[2021-01-23 00:26] VITALS: Ht 162.6 cm; Wt 72.7 kg
[2021-01-23 01:45] VITALS: BP 150/97
[2021-01-23 01:53] LABS: BASOPHILS 1.1 % (0-2); EOSINOPHILS 3.1 % (0-7); HEMATOCRIT 47.3 % (42.0-54.0); HEMOGLOBIN 16.1 g/dL (13.5-17.5); LYMPHOCYTES 23.2 % (15-50); MCHC 34.1 g/dL (31.0-37.0); MCV 90.8 fL (80.0-100.0); MEAN PLATELET VOLUME 7.9 fL (7.4-10.4); MONOCYTES 8.9 % (2-11); NEUTROPHILS 63.7 % (40-80); PLATELET COUNT 251 10x3/uL (130-400); RBC 5.21 10x6/uL (4.20-6.10); RDW 13.7 % (11.5-14.5); WBC 8.2 10x3/uL (4.8-10.8)
[2021-01-23 02:02] LABS: CALC OSMOLALITY 287 mosm/kg (275-300); CALCIUM 9.2 mg/dL (8.5-10.1); CARBON DIOXIDE 28.3 mmol/L (21.0-32.0); CHLORIDE - SERUM 104 mmol/L (98-107); CREATININE - SERUM 1.5 mg/dL (0.6-1.3); GLUCOSE 123 mg/dL (74-106); POTASSIUM - SERUM 3.6 mmol/L (3.5-5.1); SODIUM 141 mmol/L (136-145); UREA NITROGEN 29 mg/dL (7-18); eGFR NON AFRICAN AMERICAN 51 mL/min (90-120)
[2021-01-23 02:05] LABS: APTT 29.3 SECONDS (22.8-39.4); INR 1.16 (0.85-1.17); PROTIME 13.7 SECONDS (11.6-15.0)
[2021-01-23 02:19] LABS: ALBUMIN 3.4 g/dL (3.4-5.0); ALKALINE PHOSPHATASE 89 U/L (30-120); ALT (SGPT) 52 U/L (10-68); BILIRUBIN - TOTAL 0.37 mg/dL (0.2-1.3); CREATINE KINASE 148 UL (21-232); MAGNESIUM - SERUM 1.9 mg/dL (1.8-2.4); PROTEIN - SERUM 6.8 g/dL (6.4-8.2)
[2021-01-23 02:20] LABS: TROPONIN-I < 0.017 ng/mL (0.000-0.060)
== END 2021-01-23 01:45 | disposition left against medical advice (07) ==
LOC: D.ER 00:17
PROVIDERS: Student in an Organized Health Care Education/Training Program
DX: R07.9 Chest pain, unspecified (principal); R06.02 Shortness of breath; Z53.29 Procedure and treatment not carried out because of patient's decision for other reasons; I11.0 Hypertensive heart disease with heart failure; I50.9 Heart failure, unspecified; M25.519 Pain in unspecified shoulder